=== PATIENT | male | born 1970 | race Caucasian/White ===

== ENCOUNTER 2024-09-22 19:56 | Emergency (ER) | payer MEDICAID ==
[~2024-09-22] VITALS: Ht 177.8 cm; Wt 78.0 kg
[2024-09-22 20:35] VITALS: TEMP 36.8; O2SAT 98
[2024-09-23 05:00] VITALS: BP 105/66; PULSE 91; RESP 18; O2SAT 99
== END 2024-09-23 05:01 | disposition home or self-care (01) ==
LOC: ER 19:56
DX: F10.129 Alcohol abuse with intoxication, unspecified (principal); R41.0 Disorientation, unspecified; Y90.9 Presence of alcohol in blood, level not specified
CPT/HCPCS: 99284